=== PATIENT | female | born 1940 | race Caucasian/White ===

== ENCOUNTER 2018-11-06 09:54 | Emergency (ER) | payer MEDICARE, BC ==
[~2018-11-06] VITALS: Ht 160 cm; Wt 64.9 kg
[~2018-11-06 09:54] MED LIST: ALBU8.5H8 INH; ATEN25TA PO; SYNTHROID
--- NOTE | 2018-11-06 10:22 | NUR ---
PATIENT WAS SEEN BY MD. LABS DRAWN, XRAY AND EKG DONE. PATIENT IS AWAKE AND ALERT. SHE HAS A MILD INTERMITENT COUGH...
[2018-11-06 10:27] LABS: BASOPHILS # (AUTO) 0.1 K/uL (0.0-8.0); EOSINOPHILS # (AUTO) 0.1 K/uL (0.0-0.7); HEMATOCRIT 39.2 % (31.2-41.9); HEMOGLOBIN 13.1 g/dL (10.9-14.3); LYMPHOCYTES # (AUTO) 1.3 K/uL (20.0-40.0); LYMPHOCYTES % (AUTO) 20.6 % (20.5-51.5); MEAN CORPUSCULAR HEMOGLOBIN 29.9 uug (24.7-32.8); MEAN CORPUSCULAR HGB CONC 33 g/dL (32.3-35.6); MEAN CORPUSCULAR VOLUME 89.8 fL (75.5-95.3); MONOCYTES # (AUTO) 0.6 K/uL (2.0-10.0); MONOCYTES % (AUTO) 10.2 % (0.0-11.0); NEUTROPHILS % (AUTO) 66.2 % (38.5-71.5); PLATELET COUNT (AUTO) 261 K/uL (179-408); RED BLOOD CELL COUNT(AUTO) 4.37 MIL/uL (3.63-4.92); WHITE BLOOD COUNT (AUTO) 6.1 K/uL (3.8-11.8)
[2018-11-06 10:32] LABS: CARBON DIOXIDE 27 mmol/L (21-32); CHLORIDE 102 mmol/L (98-107); CREATININE 0.8 mg/dL (0.6-1.3); GLUCOSE 109 mg/dL (74-106); POTASSIUM 3.4 mmol/L (3.5-5.1); UREA NITROGEN, BLOOD 11 mg/dL (7-18)
[2018-11-06] MEDS ORDERED: ONDANSETRON 4 MG/2 ML VIAL ONE (10:57)
[2018-11-06] MEDS ORDERED: MORPHINE SULFATE 4 MG/1 ML DISP.SYRIN ONE (10:57)
--- NOTE | 2018-11-06 11:05 | NUR ---
DC, RX AND FOLLOW UP INSTRUCTIONS GIVEN AND EXPLAINED TO PATIENT WHO STATES HE UNDERSTANDS ALL INSTRUCTIONS.
== END 2018-11-06 11:15 | disposition home or self-care (01) ==
LOC: ER 09:54
DX: J20.9 Acute bronchitis, unspecified (principal); K21.9 Gastro-esophageal reflux disease without esophagitis; R07.89 Other chest pain; Z90.710 Acquired absence of both cervix and uterus; Z79.899 Other long term (current) drug therapy
CPT/HCPCS: 36415; 70030-TC; 71045; 85025; 93005; A4663; J2270; J2405

== ENCOUNTER 2018-11-15 12:33 | Emergency (ER) | payer MEDICARE, BC ==
[~2018-11-15] VITALS: Ht 162.6 cm; Wt 64.4 kg
--- NOTE | 2018-11-15 12:53 | NUR ---
Dr. Montgomery at the bedside for MSE.
[2018-11-15 13:52] LABS: BASOPHILS % (AUTO) 0.7 % (0.0-2.0); EOSINOPHILS # (AUTO) 0.2 K/uL (0.0-0.7); EOSINOPHILS % (AUTO) 2.6 % (0.0-7.0); HEMOGLOBIN 13.2 g/dL (10.9-14.3); LYMPHOCYTES % (AUTO) 30.7 % (20.5-51.5); MEAN CORPUSCULAR HEMOGLOBIN 29.7 uug (24.7-32.8); MEAN CORPUSCULAR HGB CONC 33 g/dL (32.3-35.6); MEAN CORPUSCULAR VOLUME 90.2 fL (75.5-95.3); MONOCYTES # (AUTO) 0.6 K/uL (2.0-10.0); MONOCYTES % (AUTO) 9.1 % (0.0-11.0); NEUTROPHILS # (AUTO) 3.8 K/uL (1.8-8.9); NEUTROPHILS % (AUTO) 56.9 % (38.5-71.5); PLATELET COUNT (AUTO) 298 K/uL (179-408); RED BLOOD CELL COUNT(AUTO) 4.43 MIL/uL (3.63-4.92); WHITE BLOOD COUNT (AUTO) 6.6 K/uL (3.8-11.8)
[2018-11-15 13:55] LABS: CARBON DIOXIDE 28 mmol/L (21-32); CHLORIDE 101 mmol/L (98-107); CREATININE 0.7 mg/dL (0.6-1.3); GLUCOSE 105 mg/dL (74-106); POTASSIUM 4.8 mmol/L (3.5-5.1); UREA NITROGEN, BLOOD 13 mg/dL (7-18)
--- NOTE | 2018-11-15 14:21 | NUR ---
Patient discharged to home in stable conditon. Written and verbal after care instructions given. Patient verbalizes understanding of instructions.
== END 2018-11-15 14:23 | disposition home or self-care (01) ==
LOC: ER 12:33
DX: R05 Cough (principal)
CPT/HCPCS: 36415; 71046; 85025; 93005; A4663

== ENCOUNTER 2019-01-21 11:56 | Inpatient (IN) | payer MEDICARE, BC ==
[~2019-01-21] VITALS: Ht 162.6 cm; Wt 64.9 kg
--- NOTE | 2019-01-21 12:10 | NUR ---
Patient ambulated with stable gait. Patient A/Ox4. Speech clear, speaks in complete sentences. No acute neuro deficits. Patient came for c/o chest pain/discomfort x 2 days. Per patient report, she stated she was started on Macrobid for her UTI, when urine culture came back positive, she was started on Keflex but was never advised whether or not to stop her Macrobid. Respiratory even and unlabored, no cough or sob. Denies any n/v/d.
--- NOTE | 2019-01-21 12:18 | NUR ---
ERMD at bedside for MSE
[2019-01-21 12:49] LABS: *BILIRUBIN,URIN NEGATIVE (NEGATIVE); *CLARITY,URINE CLEAR (CLEAR); *COLOR,URINE LIGHT YELLOW (YELLOW); *KETONES,URINE NEGATIVE (NEGATIVE); *UROBILINOGEN,URINE 0.2 E.U./dl (NORMAL); LEUKOCYTE ESTERASE ,URINE NEGATIVE (NEGATIVE); NITRITE, URINE NEGATIVE (NEGATIVE); UGLUCOSE NEGATIVE (NEGATIVE)
[2019-01-21 12:50] LABS: *BLOOD, URINE TRACE (NEGATIVE)
[2019-01-21 12:59] LABS: BACTERIA,URINE NONE SEEN /HPF (NONE SEEN); RBC,URINE 0-3 /HPF (0-3); SQUAMOUS EPITHELIAL CELL,UR FEW /HPF (NONE SEEN); WBC,URINE 0-3 /HPF (0-3)
[2019-01-21] MEDS ORDERED: PIPERACILLIN SODIUM/TAZOBACTAM 3.375 G in IV DEXTROSE 5% 50 ML IV ONE (13:00)
[2019-01-21] MEDS ORDERED: PIPERACILLIN/TAZOBACTAM/D5W 50 ML IV ONE (13:00)
[2019-01-21] MEDS: ATENOLOL 25 MG TABLET PO SCH ×3 (13:15→18:50)
[2019-01-21 13:26] LABS: CREATININE 0.6 mg/dL (0.6-1.3)
[2019-01-21 13:27] LABS: BASOPHILS % (AUTO) 0.4 % (0.0-2.0); EOSINOPHILS # (AUTO) 0.1 K/uL (0.0-0.7); EOSINOPHILS % (AUTO) 1.3 % (0.0-7.0); HEMATOCRIT 37.3 % (31.2-41.9); HEMOGLOBIN 12.7 g/dL (10.9-14.3); LYMPHOCYTES # (AUTO) 1.5 K/uL (20.0-40.0); LYMPHOCYTES % (AUTO) 21.8 % (20.5-51.5); MEAN CORPUSCULAR HEMOGLOBIN 30.1 uug (24.7-32.8); MEAN CORPUSCULAR HGB CONC 34 g/dL (32.3-35.6); MEAN CORPUSCULAR VOLUME 88.5 fL (75.5-95.3); MONOCYTES # (AUTO) 0.8 K/uL (2.0-10.0); MONOCYTES % (AUTO) 11.5 % (0.0-11.0); NEUTROPHILS # (AUTO) 4.3 K/uL (1.8-8.9); PLATELET COUNT (AUTO) 275 K/uL (179-408); RED BLOOD CELL COUNT(AUTO) 4.21 MIL/uL (3.63-4.92); WHITE BLOOD COUNT (AUTO) 6.7 K/uL (3.8-11.8)
[2019-01-21 13:39] LABS: BILIRUBIN,DIRECT 0.1 mg/dL (0.0-0.2); BILIRUBIN,TOTAL 0.3 mg/dL (0.2-1.0); TOTAL PROTEIN, SERUM 6.7 g/dL (6.4-8.2)
--- NOTE | 2019-01-21 13:49 | NUR ---
Report given to Ayanna
[2019-01-21] MEDS ORDERED: ATEN25TA PO (14:04)
[2019-01-21] MEDS ORDERED: LEVO150T PO (14:04)
[2019-01-21 14:30] VITALS: BP 127/53
--- NOTE | 2019-01-21 14:35 | NUR ---
Patient transported to OR in stable condition.
--- NOTE | 2019-01-21 14:40 | NUR ---
received Pt. from ER via [facility] elizabeth now on med surg floor
[2019-01-21] MEDS ORDERED: ONDANSETRON 4 MG/2 ML VIAL IV PRN (17:45)
[2019-01-21] MEDS ORDERED: ZOLPIDEM 5 MG TABLET PO PRN (17:45)
[2019-01-21] MEDS ORDERED: HYDROCODONE/APAP 5-325MG TABLET PO PRN (17:45)
[2019-01-21] MEDS ORDERED: MAGNESIUM HYDROXIDE 30 ML LIQUID UDC PO PRN (17:45)
[2019-01-21] MEDS ORDERED: Z GUARD REMEDY PASTE 57 GM TUBE TOP PRN (17:45)
[2019-01-21] MEDS ORDERED: ACETAMINOPHEN 325 MG TABLET PO PRN (17:45)
[2019-01-21] MEDS: IV NS 1000 ML 1,000 ML IV PRN (18:13)
[2019-01-21 20:19] VITALS: BP 117/53
[2019-01-21] MEDS: MEROPENEM 1 G in IV NORMAL SALINE 100 ML IV SCH (21:30)
[2019-01-21] MEDS ORDERED: MEROPENEM 1 G in IV NORMAL SALINE 100 ML IV SCH (22:00)
[2019-01-22] MEDS: MEROPENEM 1 G in IV NORMAL SALINE 100 ML IV SCH ×2 (05:09→14:18)
[2019-01-22 05:37] VITALS: BP 135/65
--- NOTE | 2019-01-22 06:28 | NUR ---
PATIENT AWAKE IN BED. SLEPT AT INTERVALS THROUGHOUT THE NIGHT. IVF INFUSING WELL TO RIGHT FA. PATIENT DENIES PAIN OR DISCOMFORT. NO RESP. DISTRESS NOTED. VSS. CALL LIGHT IN REACH. ALL NEEDS ATTENDED. WILL CONTINUE TO MONITOR AND ASSESS.
[2019-01-22 06:42] LABS: BASOPHILS % (AUTO) 0.8 % (0.0-2.0); EOSINOPHILS # (AUTO) 0.1 K/uL (0.0-0.7); EOSINOPHILS % (AUTO) 2.7 % (0.0-7.0); HEMATOCRIT 34.6 % (31.2-41.9); HEMOGLOBIN 11.9 g/dL (10.9-14.3); LYMPHOCYTES # (AUTO) 1.2 K/uL (20.0-40.0); MEAN CORPUSCULAR HEMOGLOBIN 30.1 uug (24.7-32.8); MEAN CORPUSCULAR HGB CONC 34 g/dL (32.3-35.6); MEAN CORPUSCULAR VOLUME 87.4 fL (75.5-95.3); MONOCYTES # (AUTO) 0.7 K/uL (2.0-10.0); MONOCYTES % (AUTO) 16.2 % (0.0-11.0); NEUTROPHILS # (AUTO) 2.4 K/uL (1.8-8.9); NEUTROPHILS % (AUTO) 53.3 % (38.5-71.5); PLATELET COUNT (AUTO) 276 K/uL (179-408); RED BLOOD CELL COUNT(AUTO) 3.96 MIL/uL (3.63-4.92); WHITE BLOOD COUNT (AUTO) 4.5 K/uL (3.8-11.8)
[2019-01-22] MEDS ORDERED: LEVOTHYROXINE SODIUM 125 MCG TABLET PO SCH (07:00)
[2019-01-22 07:04] LABS: CREATININE 0.8 mg/dL (0.6-1.3); MAGNESIUM 1.8 mg/dL (1.8-2.4); PHOSPHOROUS 3.3 mg/dL (2.5-4.9); POTASSIUM 3.8 mmol/L (3.5-5.1)
[2019-01-22 07:12] LABS: EOSINOPHILS % (MANUAL) 3 % (0-8); LYMPHOCYTES % (MANUAL) 28 % (20-40); MONOCYTES % (MANUAL) 15 % (2-10); NEUTROPHILS % (MANUAL) 54 % (42-75)
--- NOTE | 2019-01-22 07:45 | NUR ---
RECEIVED PATIENT IN BED AWAKE ALERT AND ORIENTED DENIES PAIN OR DISCOMFORTS AT THIS TIME REMAIN ON ANTIBIOTICS AND IVF ORDERED WITH NO ADVERSE OR ALLERGIC REACTIONS AT THIS TIME STATED WAITING FOR THE PROVIDED TO SEE IF SHE COULD GO HOME TODAY CALOL LIGHTS AND PERSOANL BELONGINGS ARE PLACED WITHIN EASY REACH MADE COMFORTABLE AND WILL CONTINIE TO OBSERVE
[2019-01-22] MEDS: ATENOLOL 25 MG TABLET PO SCH ×2 (08:42→17:05)
[2019-01-22] MEDS ORDERED: GUAIFENESIN LA 600 MG TABLET.SA PO SCH (11:00)
[2019-01-22] MEDS ORDERED: ALBUTEROL SULFATE 1.25 MG/3 ML NEBU NEB PRN (11:00)
[2019-01-22] MEDS: ACETYLCYSTEINE 10% 4ML VIAL NEB SCH ×2 (11:35→15:27)
[2019-01-22 12:10] VITALS: BP 128/50
[2019-01-22] MEDS: IV NS 1000 ML 1,000 ML IV PRN (13:45)
--- NOTE | 2019-01-22 15:28 | NUR ---
FIRST DOSE OF MUCOMYST GIVEN @ 1135 BY RT. ORDER IS TO BE GIVEN Q8. 1530 DOSE NOT GIVEN.
[2019-01-22] MEDS ORDERED: FOSFOMYCIN TROMETHAMINE 3 GM PACKET PO ONE (16:00)
[2019-01-22 16:17] VITALS: BP 120/63
[2019-01-22 17:05] VITALS: BP 120/63
--- NOTE | 2019-01-22 18:15 | NUR ---
[place] SENIOR ADMINISTRATOR SUPPORT HERE TO SEE PATIENT AND STATED THAT PATIENT CAN BE DISCHARGED TODAY AND ORDERED A PRESCRIPTION OF FOSFOMICIN AND [place] SENIOR ADMINISTRATOR SUPPORT AWARE AND STATED TO DISCHARGE PATIENT.
--- NOTE | 2019-01-22 18:40 | NUR ---
PATIENT DISCHARGED PICKED UP BY HER DELANO IN SATISFACTORY CONDITION WITH DISCHARGE INSTRUCTIONS AND PRESCRIPTIONS AND PATIENT INSTRUCTED TO CONTINUE MEDICATIONS ORDERED AND FOLLOW UP WITH HER PRIMARY DOCTOR AND DR ZANE ROSS WITHIN THE NEXT ONE TO TWO WEEKS AND SHE EXPRESSED UNDERSTANDING.
[2019-01-23] MEDS ORDERED: ALBU1.25 IH (15:16)
== END 2019-01-22 18:40 | disposition home or self-care (01) | DRG 690 ==
LOC: ER 11:59 → MEDSURG3 14:21
PROVIDERS: ADMIT Nurse Practitioner Acute Care; ATTEND Nurse Practitioner Acute Care
DX: N30.00 Acute cystitis without hematuria (principal); Z16.12 Extended spectrum beta lactamase (ESBL) resistance; B96.1 Klebsiella pneumoniae [K. pneumoniae] as the cause of diseases classified elsewhere; Z16.24 Resistance to multiple antibiotics; I49.9 Cardiac arrhythmia, unspecified; E89.0 Postprocedural hypothyroidism; Z90.49 Acquired absence of other specified parts of digestive tract; Z90.710 Acquired absence of both cervix and uterus; Z79.899 Other long term (current) drug therapy; Z79.890 Hormone replacement therapy; N76.0 Acute vaginitis; J40 Bronchitis, not specified as acute or chronic
CPT/HCPCS: 36415; 70030-TC; 71045; 83735; 84100; 84443; 85025; 85730; 87040; 87086; 93005; 93307; 94640; A4663; G0378; J2185; J2543; J3490; J7030

== ENCOUNTER 2019-01-29 23:12 | Emergency (ER) | payer MEDICARE, BC ==
[~2019-01-29] VITALS: Ht 160 cm; Wt 64.4 kg
[~2019-01-29 23:12] MED LIST changes: +ALBU1.25 IH; -ALBU8.5H8 INH; +LEVO150T PO; -SYNTHROID
--- NOTE | 2019-01-29 23:57 | NUR ---
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
[2019-01-29] MEDS ORDERED: IPRATROPIUM BROMIDE 0.5 MG/2.5 ML NEBU ONE (23:58)
[2019-01-29] MEDS ORDERED: ALBUTEROL SULFATE 2.5 MG/3 ML NEBU ONE (23:58)
[2019-01-30] MEDS ORDERED: IV NORMAL SALINE 1000 ML BAG IV ONE
[2019-01-30] MEDS ORDERED: ALBUTEROL SULFATE 2.5 MG/3 ML NEBU NEB ONE
[2019-01-30] MEDS ORDERED: IPRATROPIUM BROMIDE 0.5 MG/2.5 ML NEBU NEB ONE
--- NOTE | 2019-01-30 00:10 | NUR ---
PT ABLE TO TOLERATE BREATHING TREATMENT
--- NOTE | 2019-01-30 00:30 | NUR ---
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
[2019-01-30 00:45] LABS: BASOPHILS % (AUTO) 0.6 % (0.0-2.0); EOSINOPHILS # (AUTO) 0.3 K/uL (0.0-0.7); EOSINOPHILS % (AUTO) 3.3 % (0.0-7.0); HEMATOCRIT 36.8 % (31.2-41.9); HEMOGLOBIN 12.6 g/dL (10.9-14.3); LYMPHOCYTES # (AUTO) 2.2 K/uL (20.0-40.0); MEAN CORPUSCULAR HEMOGLOBIN 30.3 uug (24.7-32.8); MEAN CORPUSCULAR HGB CONC 34 g/dL (32.3-35.6); MEAN CORPUSCULAR VOLUME 88.4 fL (75.5-95.3); MONOCYTES # (AUTO) 0.7 K/uL (2.0-10.0); MONOCYTES % (AUTO) 9.6 % (0.0-11.0); NEUTROPHILS # (AUTO) 4.4 K/uL (1.8-8.9); NEUTROPHILS % (AUTO) 57.5 % (38.5-71.5); PLATELET COUNT (AUTO) 355 K/uL (179-408); RED BLOOD CELL COUNT(AUTO) 4.17 MIL/uL (3.63-4.92); WHITE BLOOD COUNT (AUTO) 7.7 K/uL (3.8-11.8)
[2019-01-30 00:50] LABS: BILIRUBIN,DIRECT 0.1 mg/dL (0.0-0.2); BILIRUBIN,TOTAL 0.4 mg/dL (0.2-1.0); CREATININE 0.7 mg/dL (0.6-1.3); POTASSIUM 3.2 mmol/L (3.5-5.1); TOTAL PROTEIN, SERUM 6.9 g/dL (6.4-8.2)
--- NOTE | 2019-01-30 01:00 | NUR ---
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
--- NOTE | 2019-01-30 02:00 | NUR ---
Phi rodrigez in EDM - 01/30/19 at 0302 by HAMILTON +PULSES +BOTH HANDS SLIGHTLY COLD +CAP REFILL LESS THAN 2S CMS CHECK DONE REMOVED SPLINT FROM BARNWORKER GROOM PAIN AT 10/26
[2019-01-30] MEDS ORDERED: DOXYCYCLINE HYCLATE 100 MG TABLET PO ONE (02:15)
[2019-01-30] MEDS ORDERED: predniSONE 20 MG TABLET PO ONE (02:15)
[2019-01-30] MEDS ORDERED: DOXYCYCLINE HYCLATE 100 MG TABLET ONE (02:17)
[2019-01-30] MEDS ORDERED: predniSONE 20 MG TABLET ONE (02:18)
--- NOTE | 2019-01-30 02:20 | NUR ---
Phi rodrigez in EDM - 01/30/19 at 0302 by HAMILTON MD AT BEDSIDE FOR UPDATE PT ABLE TO TOLERATE PHYSICAL EXAM AND MANIPULATION OF L WRIST REDUCTION DONE PT ABLE TO DO ROM WITH GREAT RELIEF +PULSES +BOTH HANDS SLILGHTLY COLD +CAP REFILL LESS THAN 2S CMS CHECK DONE
--- NOTE | 2019-01-30 02:26 | NUR ---
DC [place], DRESSED
--- NOTE | 2019-01-30 02:37 | NUR ---
Patient discharged to home in stable conditon. Written and verbal after care instructions given. Patient verbalizes understanding of instructions. AMBULATORY W/ STABLE GAIT ALL BELONGINGS W/ PT SAL[place] L[place] DC, DRESSED
[2019-01-30 02:41] VITALS: BP 140/75
== END 2019-01-30 02:41 | disposition home or self-care (01) ==
LOC: ER 23:17
DX: J20.9 Acute bronchitis, unspecified (principal); Z90.49 Acquired absence of other specified parts of digestive tract; Z90.710 Acquired absence of both cervix and uterus; Z79.899 Other long term (current) drug therapy
CPT/HCPCS: 36415; 71045; 80048; 80076; 83880; 84484; 85025; 87040 ×2; 87400; 93005; 94640; 99284; J7512; 70030-TC; A4663; J3590; J7030

== ENCOUNTER 2023-09-14 13:13 | Emergency (ER) | payer MEDICARE, BC ==
[~2023-09-14] VITALS: Ht 160 cm; Wt 60.8 kg
[~2023-09-14 13:13] MED LIST changes: -ALBU1.25 IH
[2023-09-14] MEDS: IV NORMAL SALINE 1000 ML BAG IV ONE (14:20)
[2023-09-14 14:29] LABS: *BILIRUBIN,URIN NEGATIVE (NEGATIVE); *BLOOD, URINE NEGATIVE (NEGATIVE); *CLARITY,URINE CLEAR (CLEAR); *COLOR,URINE YELLOW (YELLOW); *KETONES,URINE NEGATIVE (NEGATIVE); *PROTEIN,URINE NEGATIVE (NEGATIVE); *UROBILINOGEN,URINE 0.2 E.U./dl (NORMAL); LEUKOCYTE ESTERASE ,URINE NEGATIVE (NEGATIVE); NITRITE, URINE NEGATIVE (NEGATIVE); PH,URINE 8.5 (5.0-8.0); UGLUCOSE NEGATIVE (NEGATIVE)
[2023-09-14 14:30] LABS: BASOPHILS % (AUTO) 0.8 % (0.0-2.0); EOSINOPHILS # (AUTO) 0.1 K/uL (0.0-0.7); EOSINOPHILS % (AUTO) 1.4 % (0.0-7.0); HEMATOCRIT 37.1 % (31.2-41.9); HEMOGLOBIN 12.4 g/dL (10.9-14.3); LYMPHOCYTES # (AUTO) 1.7 K/uL (0.8-4.8); LYMPHOCYTES % (AUTO) 28.8 % (20.5-51.5); MEAN CORPUSCULAR HEMOGLOBIN 30.6 uug (24.7-32.8); MEAN CORPUSCULAR HGB CONC 34 g/dL (32.3-35.6); MEAN CORPUSCULAR VOLUME 91.2 fL (75.5-95.3); MONOCYTES # (AUTO) 0.7 K/uL (0.1-1.30); MONOCYTES % (AUTO) 12.8 % (0.0-11.0); NEUTROPHILS # (AUTO) 3.3 K/uL (1.8-8.9); NEUTROPHILS % (AUTO) 56.2 % (38.5-71.5); PLATELET COUNT (AUTO) 264 K/uL (179-408); RED BLOOD CELL COUNT(AUTO) 4.07 MIL/uL (3.63-4.92); WHITE BLOOD COUNT (AUTO) 5.8 K/uL (3.8-11.8)
[2023-09-14 14:31] LABS: DIFFERENTIAL COMMENT 1
[2023-09-14 14:38] LABS: CALCIUM 8.8 mg/dL (8.5-10.1); CARBON DIOXIDE 29 mmol/L (21-32); CHLORIDE 99 mmol/L (98-107); CREATININE 0.6 mg/dL (0.6-1.3); GLUCOSE 92 mg/dL (74-106); LIPASE 43 U/L (16-77); POTASSIUM 4.1 mmol/L (3.5-5.1); SODIUM SERUM 136 mmol/L (136-145); UREA NITROGEN, BLOOD 10 mg/dL (7-18)
[2023-09-14 14:49] LABS: ALANINE AMINOTRANSFERASE 32 U/L (14-59); ALBUMIN 3.8 g/dL (3.4-5.0); ALKALINE PHOSPHATASE 57 U/L (50-136); ASPARTATE AMINOTRANSFERASE 14 U/L (15-37); BILIRUBIN,DIRECT 0.1 mg/dL (0.0-0.2); BILIRUBIN,TOTAL 0.4 mg/dL (0.2-1.0); TOTAL PROTEIN, SERUM 6.7 g/dL (6.4-8.2)
[2023-09-14 16:32] VITALS: BP 155/69; TEMP 207.7; O2SAT 100
== END 2023-09-14 16:33 | disposition home or self-care (01) ==
LOC: ER 13:13
DX: R07.89 Other chest pain (principal); Z90.49 Acquired absence of other specified parts of digestive tract; Z98.890 Other specified postprocedural states; Z79.899 Other long term (current) drug therapy
CPT/HCPCS: 99285; 74176; 96360; 71045; 96361; 80076; 80048; 81003; 83690; 85025; 85730; 84484; 36415; 93005; J7040; A4606; A4663